=== PATIENT | male | born 2005 | race Caucasian/White ===

== ENCOUNTER 2024-09-08 12:26 | Emergency (ER) | payer OTHER, SELFPAY ==
[2024-09-08 12:34] VITALS: BP 132/87; PULSE 90; RESP 18; TEMP 36.7; O2SAT 98
--- NOTE | 2024-09-08 13:02 | ED.HA ---
HPI - Headache General Chief Complaint: Headache Stated Complaint: HEADACHE Time Seen by Provider: 09/08/24 13:02 Source: patient Mode of arrival: ambulatory Limitations: no limitations History of Present Illness HPI Narrative: 19-year-old male presents with complaint of headache intermittent for the past week or 2. Has not had to take any [id number] pain medications to treat headaches. States pain goes away on its own. With headaches he feels fatigued and has some light sensitivity. Patient states his mom and brother both have history of migraines. Was told by his mom to come to Urgent Care today to be checked out. Patient requesting work excuse. No headache at this time. Rates pain a 0/10 All systems reviewed and negative except as noted above. Related Data Home Medications ?Medication ?Instructions ?Recorded ?Confirmed ?Last Taken ?Type dextroamphetamine-amphetamine 30 09/08/24 Unknown History mg tablet escitalopram oxalate 10 mg tablet mg 09/08/24 Unknown History Allergies Allergy/AdvReac Type Severity Reaction Status Date / Time No Known Allergies Allergy Verified 09/08/24 12:43 Review of Systems Review of Systems: CONSTITUTIONAL: Denies fever, chills, or sweats. EYES: Denies visual changes, redness, or discharge. ENT: Denies rhinorrhea, congestion, sore throat, or otalgia. CARDIOVASCULAR: Denies chest pain, palpitations, or edema. RESPIRATORY: Denies cough or dyspnea. GASTROINTESTINAL: Denies abdominal pain, nausea, vomiting, or diarrhea. GENITOURINARY: Denies dysuria or hematuria. SKIN: Denies rash or itching. MUSCULOSKELETAL: Denies back pain, joint pain, or myalgia. NEUROLOGIC: Reports intermittent headache. Denies numbness, or weakness. PSYCHIATRIC: Denies anxiety or depression. All other systems reviewed are negative, except as documented in HPI. PMFSH Comments At time of signature, agree with nursing past medical, surgical, social and family history. There is no relevant family history pertinent to the presenting complaint. Exam Narrative: GENERAL: This is a well-nourished, well-developed patient, in no apparent distress. HEAD: normocephalic, atraumatic. EYES: PERRL. Sclera clear/white. Vision is grossly intact. extraocular motion intact EARS: External ears normal, auditory canals clear and without drainage, TMs normal without perforation. Hearing grossly intact. NOSE: External nose normal with no obvious nasal discharge, nares without redness, no rhinorrhea. THROAT: Mucous membranes moist, posterior pharynx clear. NECK: Neck supple, non-tender without lymphadenopathy, masses or thyromegaly. CARDIOVASCULAR: Regular rate and rhythm without murmurs, gallops, or rubs. RESPIRATORY: Clear to auscultation. Breath sounds equal bilaterally. No wheezes, rales, or rhonchi. SKIN: warm, Dry, intact with no suspicious lesions or rash, good texture and turgor. NEURO: awake, alert, and oriented to person, place and time. There were no obvious focal neurologic abnormalities. steady gait. mortgage branch manager equal. EXTREMITIES: No joint tenderness, effusion, or edema noted. Course Course Level of Care: Express Care Visit Vital Signs Vital signs: Vital Signs Temperature 36.7 C 09/08/24 12:34 Pulse Rate 90 09/08/24 12:34 Respiratory Rate 18 09/08/24 12:34 Blood Pressure 132/87 09/08/24 12:34 Pulse Oximetry 98 09/08/24 12:34 Oxygen Delivery Room Air 09/08/24 12:34 Temperature 36.7 C 09/08/24 12:34 Pulse Rate 90 09/08/24 12:34 Respiratory Rate 18 09/08/24 12:34 Blood Pressure 132/87 09/08/24 12:34 Pulse Oximetry 98 09/08/24 12:34 Oxygen Delivery Room Air 09/08/24 12:34 Reviewed MDM - Headache MDM Narrative Medical decision making narrative: Patient has no headache pain at this time. Recommend he follow-up with his primary care physician for outpatient labs and imaging and due to recent onset intermittent headaches. Patient is alert, nontoxic. No neuro deficits. Patient agrees with plan of care. Did recommend he go to the ER for any worsening of symptoms. Discharge Plan Discharge Clinical Impression: Headache Patient Disposition: Home Condition: Stable Instructions: Antibiotic Form, Acute Headache (ED) Additional Instructions: Take ibuprofen or Tylenol every 6-8 hours as needed for pain. Drink at least 64 oz water a day. Follow-up with your primary care physician for further evaluation of headaches. If you are having severe pain, vomiting go to the ER. Patient Language: Croatian Prescriptions: No Action dextroamphetamine-amphetamine 30 mg tablet escitalopram oxalate 10 mg tablet Follow-up/Referrals: Derek,IDANIA Vieira [Primary Care Provider] - Stand Alone Forms: Work/School Release IP Time of Disposition: 13:09
== END 2024-09-08 13:11 | disposition home or self-care (01) ==
PROVIDERS: Emergency Provider Nurse Practitioner Family; PCP Physician Assistant
DX: R51.9 Headache, unspecified (principal)
CPT/HCPCS: 99213; G0463